=== PATIENT | female | born 1960 | race Caucasian/White ===

== ENCOUNTER 2017-01-06 15:44 | Inpatient (IN) ==
[2017-01-06] MEDS ORDERED: ZOFRAN ONE (16:05)
[2017-01-06] MEDS ORDERED: AMMONIA AROMATIC ONE (16:05)
[2017-01-06] MEDS ORDERED: NS 1,000 ML ONE (16:06)
[2017-01-06 16:15] LABS: MANUAL DIFF NEEDED? NO
[2017-01-06] MEDS ORDERED: ZOFRAN IV ONE ×2 (16:16→17:58)
[2017-01-06] MEDS ORDERED: NS 1,000 ML IV ONE ×2 (16:16→20:37)
[2017-01-06 16:17] LABS: BASO% 0.1 % (0.0-0.8); EOS# 0.11 X1000 (0.0-0.7); EOS% 1.4 % (0.0-10.0); HEMATOCRIT 43.8 % (37.0-47.0); HEMOGLOBIN 14.9 g/dL (12.0-16.0); IMM GRAN# 0.02 X1000 (0.0-0.04); IMM GRAN% 0.2 % (0.0-0.5); LYMPH# 2.55 X1000 (1.2-3.4); LYMPH% 31.8 % (20.5-51.1); MCH 28.9 PG (27-31); MCV 84.9 FL (81-99); MONO# 0.24 X1000 (0.11-0.59); MPV 10.7 FL (7.4-10.4); NEUT% 63.5 % (42.2-75.2); PLT 237 X1000 (130-400); RBC 5.16 XMIL (4.2-5.4)
[2017-01-06 16:38] LABS: AGAP 12; ALBUMIN 4.4 g/dL (3.5-5.0); ALKALINE PHOSPHATASE 84 U/L (32-104); BUN 14 mg/dL (8-22); CALCIUM 10.1 mg/dL (8.8-10.2); CHLORIDE 101 mmol/L (98-107); CK PROFILE 424 U/L (24-173); COSMO 278; GOT 30 U/L (10-30); GPT 21 U/L (10-36); POTASSIUM 3.4 mmol/L (3.5-5.1); SODIUM 139 mmol/L (136-145); TCO2 26 mmol/L (25-35); TOTAL BILIRUBIN < 0.15 mg/dL (0.20-1.00); TOTAL PROTEIN 8.2 g/dL (6.3-8.3)
[2017-01-06 16:41] LABS: PROTIME 11.3 Seconds (12.1-15.5); PTT PL 29.9 Seconds (22.6-43.9)
[2017-01-06 16:44] LABS: UR AMPHETAMINES QUAL NONE DETECTED (NONE DETECT); UR BARBITUATES QUAL NONE DETECTED (NONE DETECT); UR BENZODIAZEPIN QUAL NONE DETECTED (NONE DETECT)
[2017-01-06 16:45] LABS: UR CANNABINOIDS QUAL NONE DETECTED (NONE DETECT); UR COCAINE QUAL NONE DETECTED (NONE DETECT); UR MDMA QUAL NONE DETECTED (NONE DETECT); UR METHADONE QUAL NONE DETECTED (NONE DETECT); UR METHAMPHETAMINE QUAL PRESUMPTIVE POSITIVE (NONE DETECT); UR OPIATES QUAL NONE DETECTED (NONE DETECT); UR OXYCODONE QUAL NONE DETECTED (NONE DETECT); UR PCP QUAL PRESUMPTIVE POSITIVE (NONE DETECT); UR TCA QUAL NONE DETECTED (NONE DETECT)
[2017-01-06 16:52] LABS: BILIRUBIN URINE NEGATIVE (NEGATIVE); BLOOD URINE NEGATIVE (NEGATIVE); CLARITY CLEAR (CLEAR); COLOR YELLOW; GLUCOSE URINE NEGATIVE (NEGATIVE); LEUKOCYTES URINE TRACE (NEGATIVE); NITRITE URINE NEGATIVE (NEGATIVE); PROTEIN URINE NEGATIVE (NEGATIVE); SP GRAVITY URINE 1.005; UROBILINOGEN URINE NORMAL
[2017-01-06 17:00] LABS: BE -4.1 mmoll (-3.0-3.0); BLOOD TYPE ARTERIAL; DRAW SITE R RADIAL; O2(CT) 19.9 mL/dL (15.0-23.0); PCO2(98.6) 44 mmHg (35-45); PO2(98.6) 178 mmHg (60-100); SAMPLE BLOOD; SAO2 99.9 % (95.0-100.0); THB 14.6 g/dL (11.5-17.4); pH(98.6) 7.31 (7.35-7.45)
--- NOTE | 2017-01-06 17:05 | EKG Report ---
Test Performed on : 01/06/2017 4:37:55 PM Test Reason : AMS Blood Pressure : / mmHG Vent. Rate : 062 BPM Atrial Rate : 062 BPM P-R Int : 142 ms QRS Dur : 088 ms QT Int : 430 ms P-R-T Axes : 070 079 064 degrees QTc Int : 436 ms Normal sinus rhythm. with sinus arrhythmia. Possible Left atrial enlargement Borderline ECG No previous ECGs available Unconfirmed Result
[2017-01-06 17:06] LABS: MODALITY CANNULA
[2017-01-06 17:07] LABS: ALLEN TEST YES
[2017-01-06 17:24] LABS: URINE WBC <10 /HPF (<10)
[2017-01-06 17:25] LABS: URINE CAST NONE SEEN /LPF; URINE CRYSTAL NONE SEEN /HPF; URINE CULTURE PL NEEDED? YES; URINE EPITHELIAL CELLS <10 /HPF (<10); URINE SOURCE CATH
[2017-01-06 17:40] LABS: CK INDEX 2.6 (0.0-2.5); CK-MB 11.06 ng/mL (0.0-5.0)
[2017-01-06 17:47] LABS: INR 0.76 (0.86-1.15)
--- NOTE | 2017-01-06 17:54 | PROVIDER DOCUMENTATION ---
This chart was entered by Nia Guardado Scribe, acting as scribe for Amber Lantigua MD. HPI-Female /OB/Breast - General Chief Complaint: General Adult Stated Complaint: UTI SX Time Seen by Provider: 01/06/17 16:04 Source: reports: patient Allergies/Adverse Reactions: Patient Allergies Allergy/AdvReac Type Severity Reaction Status Date / Time No Known Allergies Allergy Verified 01/06/17 16:26 Home Medications: Home Medication List Medication Instructions Recorded Confirmed Last Taken Type Albuterol [Albuterol Neb] 2.5 mg IH 4XDAY 01/06/16 01/06/17 Unknown History Buprenorphine/Naloxone S.l. 1 tab PO BID 01/06/17 01/06/17 01/06/17 History [Suboxone 8 mg/2 mg] Levothyroxine [Synthroid] 150 mcg PO DAILY #30 tablet 01/08/17 Unknown Rx Polyethylene Glycol 3350 [Miralax] 17 gm PO DAILY #30 powd.pack 01/08/17 Unknown Rx - History of Present Illness-Female /OB Nature of Presenting Problem: Pt is a 56 y/o F presents to the ED with suprapubic pain. Pt states she self caths. Pt states nausea and vomit. Pt is diaphoretic and pallor on arrival. Does patient report she is ?: No Location of complaint: reports: suprapubic Radiation: reports: none Quality of Pain: reports: cramping Severity in ED: reports: moderate Onset/Duration: reports: this morning Timing: reports: still present Context/Activities at Onset: reports: light activity Urinary Symptoms: reports: retention Modifying Factors: improves with: nothing Associated Symptoms: reports: diaphoresis, nausea, vomiting. denies: anxiety, back/neck pain, chest pain, constipation, cough, diarrhea, dizziness, fatigue, fever/chills, joint pain, loss of appetite, malaise, muscle aches, rash, seizure , sensory/motor loss, swelling/mass in abdomen, syncope, weakness, trouble walking Similar Symptoms Previously?: Yes Recently seen or treated by another doctor?: No Review of Systems - Adult - REVIEW OF SYSTEMS - ADULT Constitutional: reports: no symptoms reported Eyes: reports: no symptoms reported Ears, Nose, Mouth & Throat: reports: no symptoms reported Cardiovascular: reports: no symptoms reported Respiratory: reports: no symptoms reported Gastrointestinal: reports: abdominal pain (suprapubic), nausea, vomiting. denies: diarrhea Genitourinary: reports: urinary retention. denies: dysuria, flank pain, hematuria Musculoskeletal: reports: no symptoms reported Integumentary: reports: no symptoms reported Neurological: reports: no symptoms reported Psychiatric: reports: no symptoms reported Endocrine: reports: no symptoms reported Hematologic/Lymphatic: reports: no symptoms reported Allergic/Immunologic: reports: no symptoms reported All Other Systems: Reviewed and Negative Past History - Adult - PAST MEDICAL HISTORY-ADULT Review of Records: reports: Nursing Assessment Review, Medications Reviewed, Social history reviewed & non-contributory. Major Childhood Illnesses: reports: denies history Cardiovascular: reports: HTN Respiratory: reports: COPD Gastrointestinal: reports: GERD, ulcer. denies: Crohn's, hemorrhoids, inflammatory bowel disease, IBS Obstetrical/Gynecological: reports: denies history Genitourinary: reports: other (bladder mesh) Musculoskeletal: reports: arthritis, chronic pain, fibromyalgia, neck/back injury (back) Neurological: reports: denies history Psychiatric: reports: denies history Endocrine/Immune: reports: thyroid disorder Other Conditions: reports: denies history - PRIOR SURGERIES/PROCEDURES Surgical/Procedure History: reports: appendectomy, hysterectomy, orthopedic ( extremity), breast, other - IMMUNIZATION STATUS Childhood Immunizations: See Nurse Assessment Flu Vaccine: See Nurse Assessment - FAMILY HISTORY Family History: reviewed, not pertinent - SOCIAL HISTORY Smoking: cigarettes, greater than 1 pack/day Provider spent 3-5 mins advising pt. on dangers of tobacco.: Discussed manners to quit use, and f/u contacts for add'l counseling. Substance Use: denies Living Situation: family Physical Exam-General - PHYSICAL EXAM-ADULT Initial Vital Signs Reviewed: Yes - CONSTITUTIONAL General Appearance: alert, moderate distress, thin, slow to respond. negative: appears well, lethargic - EYES Eyes: PERRL/EOMI, pale conjunctivae. negative: pink conjunctivae, sunken eyes - HEAD, EARS, NOSE, MOUTH & THROAT HENMT: normal ENT inspection. negative: angioedema, hearing deficit - NECK Neck: normal inspection. negative: lymphadenopathy, tender lateral - RESPIRATORY Respiratory: chest non-tender, lungs clear, normal breath sounds. negative: crackles, wheezing - CARDIOVASCULAR Cardiovascular: normal peripheral pulses, bradycardia. negative: regular rate, rhythm, systolic murmur - GASTROINTESTINAL (ABDOMEN) Abdominal Exam: normal bowel sounds, soft, tenderness (suprapubic). negative: distended, rebound - LYMPHATIC Lymphatic: no adenopathy. negative: enlargement, streaking - MUSCULOSKELETAL Back Exam: normal inspection. negative: ecchymosis, vertebral tenderness Extremity: normal inspection. negative: deformity, erythema, swelling - SKIN Integumentary: diaphoresis, pallor. negative: normal color, warm/dry, ecchymosis, erythema, jaundice, rash - NEUROLOGIC Neurologic: other (unable to assess per Pt's condition) - PSYCHIATRIC Psych/Mental Status: disheveled, other (unable to assess per Pt's condition) Progress - PLAN OF CARE/RESULTS Progress/Plan/Lab Results: Orders Category Date Time Status Admit - [facility] Routine AdmDCTranf 01/06/17 20:37 Ordered Activity - Strict Bedrest ORDERED Care 01/06/17 20:37 Inactive Call Admitting on Arrival AT ADMISSION Care 01/06/17 20:38 Completed Cardiac Monitoring DIRECTED Care 01/06/17 16:02 Completed Finger Stick Blood Sugar (ED) DIRECTED Care 01/06/17 16:02 Completed Reinoso Cath Insertion ORDERED Care 01/06/17 16:25 Completed Neurological Check Q4H Care 01/06/17 20:38 Active Oxygen Therapy- ED Nursing DIRECTED Care 01/06/17 16:02 Completed Saline Loc NOW Care 01/06/17 16:02 Completed Vital Signs Order Q2HR Care 01/06/17 20:37 Completed flat [FLAT/UPRIGHT ABD/1 VIEW CHEST] [RAD] Stat Exams 01/06/17 17:40 Completed ABG [RESP] Routine Lab 01/06/17 16:33 Completed ALCOHOL BLOOD Stat Lab 01/06/17 16:09 Completed BLOOD CULTURE [BLDCUL] Stat Lab 01/06/17 16:45 Results CBC WITH ELECTRONIC DIFF [HEME] Stat Lab 01/06/17 16:09 Completed CK PROFILE [SP CHEM] Stat Lab 01/06/17 16:09 Completed CK PROFILE [SP CHEM] Stat Lab 01/06/17 18:56 Completed COMPREHENSIVE METABOLIC PANEL [CHEM] Stat Lab 01/06/17 16:09 Completed LACTATE, PLASMA [CHEM] Stat Lab 01/06/17 16:09 Completed [address]IME WITH INR PL [COAG] Stat Lab 01/06/17 16:[address] [COAG] Stat Lab 01/06/17 16:09 Completed TROPONIN T Stat Lab 01/06/17 16:09 Completed TROPONIN T Stat Lab 01/06/17 18:56 Completed TSH Stat Lab 01/06/17 18:[address] W/POSS RFLX CULT [URINALYSIS] Stat Lab 01/06/17 16:15 Completed URINE CULTURE [RM] Routine Lab 01/06/17 17:31 Com[address]INE DRUG SCREEN PL Stat Lab 01/06/17 16:15 Completed 0.9% Sodium Chloride Inj [Ns] 1,000 ml Med 01/06/17 16:06 Discontinued .ROUTE As Directed 0.9% Sodium Chloride Inj [Ns] 1,000 ml Med 01/06/17 16:16 Discontinued IV 999 mls/hr 0.9% Sodium Chloride Inj [Ns] 1,000 ml Med 01/06/17 20:37 Discontinued IV KVO Ammonia, Aromatic [Ammonia Aromatic] Med 01/06/17 16:05 Discontinued 1 each .ROUTE .STK-MED ONE Levothyroxine [Synthroid] Med 01/06/17 21:06 Discontinued 100 microgm PO NOW ONE Levothyroxine [Synthroid] Med 01/06/17 21:07 Discontinued 100 microgm PO NOW ONE Ondansetron [Zofran] Med 01/06/17 16:05 Discontinued 4 mg .ROUTE .STK-MED ONE Ondansetron [Zofran] Med 01/06/17 16:16 Discontinued 4 mg IV NOW ONE Ondansetron [Zofran] Med 01/06/17 17:58 Discontinued 4 mg IV NOW ONE Oxygen Device Routine Oth 01/06/17 20:38 Completed Pulse Oximetry Stat Oth 01/06/17 16:02 Completed EKG [EKG] Stat Ther 01/06/17 16:02 Draft EKG [EKG] Stat Ther 01/06/17 18:39 Draft Transfer/Admit Order [TRANSFER] Routine Transfer 01/06/17 20:37 Completed Result Diagrams: 01/08/17 05:57 01/08/17 05:57 - EKG 1 Time of EKG reading by physician:: 16:37 EKG Read and Signed by:: Amber Lantigua EKG Interpretation (*Must complete 3 of following elements*): Abnormal Rate: 62 Rhythm: normal sinus rhythm with sinus arrhythmia Comments: possible left atrial enlargement - CHANGE OF SHIFT REPORT (ED Provider) Report Given and Care Transferred to:: Dr. Powell Time of Transfer: 17:50 Items Pending: Labs, XRAY Results Departure - Departure Date of Disposition Decision: 01/06/17 Time of Disposition Decision: 22:45 DIAGNOSIS: Altered mental status, Overdose, Hypothermia Disposition: ADMITTED INPATIENT 09 Certified Medical Emergency: Emergent Condition: Serious - Critical Care Note This patient required my direct & personal management of CC.: Yes Total Time (mins): 35 Critical Care Statement: This patient required my direct personal management to treat or rule out processes, the absence of which, could potentiallly result in sudden, clinically significant life or limb threatening deterioration. Attestation - Physician/ GAUDENCIO Attestation Patient care was provided by Advanced Practice Provider:: No The physician spent face to face time with patient:: Yes Advanced Practice Provider documentation review:: Supervising physician onsite and consulted in the evaluation and care of this patient. The physician did have a face to face encounter with the patient. This chart was documented by the indicated scribe, (Nia Guardado, Aaron) and accurately reflects the services I performed and decisions made by me, Amber Lantigua MD, as attested by the provider's signature.
--- NOTE | 2017-01-06 18:24 | Diag Imaging Result Doc PS360 ---
EXAM: FLAT/UPRIGHT ABD/1 VIEW CHEST HISTORY: Abd opain TECHNIQUE: Flat and upright abdomen with PA chest COMMENT: There is a large amount of stool throughout the colon. There is no evidence organomegaly or mass in the small bowel and stomach are not distended. The appearance of the chest has not changed significantly since 01/05/2017. IMPRESSION: Severe constipation. Electronically signed by Segundo Sarah 01/06/2017 6:22 PM
--- NOTE | 2017-01-06 19:00 | EKG Report ---
Test Performed on : 01/06/2017 6:44:03 PM Test Reason : cp Blood Pressure : / mmHG Vent. Rate : 073 BPM Atrial Rate : 073 BPM P-R Int : 132 ms QRS Dur : 086 ms QT Int : 404 ms P-R-T Axes : 070 076 062 degrees QTc Int : 445 ms Normal sinus rhythm. Possible Left atrial enlargement Borderline ECG When compared with ECG of 06-JAN-2017 16:37, (Unconfirmed) No significant change was found Unconfirmed Result
--- NOTE | 2017-01-06 19:59 | ED EKG INTERP ---
This chart was entered by Jihan Esparza Scribe, acting as scribe for Kai Powell MD. EKG Interpretation - EKG Time of EKG reading by physician:: 18:44 EKG Read and Signed by:: Kai Powell EKG Interpretation (*Must complete 3 of following elements*): Abnormal Rate: 73 Rhythm: NSR Comments: possible LAE Attestation - Physician/ GAUDENCIO Attestation The physician spent face to face time with patient:: Yes Advanced Practice Provider documentation review:: Supervising physician onsite and consulted in the evaluation and care of this patient. The physician did have a face to face encounter with the patient. This chart was documented by the indicated scribe, (Jihan Esparza Scribe) and accurately reflects the services I performed and decisions made by me, Kai Powell MD, as attested by the provider's signature.
[2017-01-06 20:04] LABS: CK INDEX 2.9 (0.0-2.5); CK-MB 8.63 ng/mL (0.0-5.0)
[2017-01-06] MEDS ORDERED: SYNTHROID PO ONE ×3 (21:06→23:45)
--- NOTE | 2017-01-07 05:52 | HISTORY AND PHYSICAL ---
ADDENDUM: The patient was seen in the ER and examined. She was noted to have a temp of 94 degrees. Blood pressures were stable at 130s. She was having some altered mental status, but currently is actually improving. She currently knows who she is, where she is. States that she self caths and that she has done this before when she has had a urinary infection. She does admit to using meth a couple of days ago. She notes that she has a thyroid problem, but has not been on thyroid medication for several months. PHYSICAL EXAMINATION: GENERAL: Patient is awake, alert. She is much more oriented now. VITAL SIGNS: Her temperature is improving with a bear-hugger. She is currently at 130/60 blood pressure. LABORATORIES: Pretty much normal. PLAN: We will admit patient to ICU and will follow. Uncertain etiology. Certainly could have urinary infection, although her current UA looks clear. We will admit her on antibiotics, bear- hugger, IV fluids and will follow. cc: Jon Scott MD
[2017-01-07] MEDS ORDERED: CITRATE OF MAGNESIA PO ONE (10:45)
[2017-01-07] MEDS: SYNTHROID PO SCH (11:03)
[2017-01-07] MEDS: SUBOXONE 8 MG/2 MG SL SCH ×2 (11:05→21:31)
--- NOTE | 2017-01-07 11:25 | PROGRESS NOTE ---
DATE: 01/07/2017 SUBJECTIVE: Patient sitting up in bed, answering questions appropriately this morning. She is alert and oriented to person, place, time, and purpose. States she still has some nausea, no vomiting this morning. But overall, states she is feeling better. OBJECTIVE: Vital signs: Showed a temperature of 98.4 degrees, pulse 63, respirations 16, blood pressure 96/57, saturating 100% on 2 L via nasal cannula. General: This is a 56-year-old female, who is sitting up in the bed, still appears pale in color, but is no longer diaphoretic and answers questions appropriately this a.m. HEENT: Normocephalic and atraumatic. Pupils are equal, round, reactive to light. Extraocular movements are intact. Oropharynx and nares are clear. Neck: Supple. Lungs: Clear to auscultation bilaterally with equal lung expansion and chest wall movement. Heart: With regular rate and rhythm. No murmurs, rubs, or gallops. Abdomen: Soft, nontender, nondistended. Bowel sounds are present x4 quadrants. Extremities: There is no clubbing, cyanosis, or edema. Neurological: The cranial nerves 2-12 appear grossly intact. LABORATORY DATA: No new labs this a.m. ASSESSMENT AND PLAN: 1. Altered mental status, improved. 2. Hypothermia, resolved. 3. Severe constipation. We will give her a bottle of magnesium citrate this morning and follow. 4. Mild rhabdomyolysis, continues to improve. Will recheck cardiac enzymes this a.m. 5. Disposition. If she has a positive bowel movement and can tolerate advancement of her diet, hopefully home in the next 1-2 days. Dictated by ROBBY Oneill for Jose Palomares MD cc: ROBBY Oneill MD
--- NOTE | 2017-01-07 11:43 | HISTORY AND PHYSICAL ---
PRIMARY CARE PHYSICIAN: None. CHIEF COMPLAINT: Suprapubic pain with nausea, vomiting that had progressively worsened over the last several days. HISTORY OF PRESENTING ILLNESS: This is a 56-year-old female who presents to [facility] ER with complaints of suprapubic abdominal pain, nausea and vomiting. States that she self cath's due to issues from having a bladder mesh placed. When she arrived, she was noted to be diaphoretic and paler in color. Her temperature was 94.2 degrees on arrival with a pulse of 54, respirations 28, blood pressure 151/94, but satting 100% on room air. Workup was essentially benign, except she was noted to have a creatine kinase of 424 with a CK-MB of 11.06. Negative troponin at less than 0.010. Repeat 3 hours later showed a creatine kinase had come down to 302 with a CK-MB of 8.63 with a negative troponin of less than 0.010. Urinalysis was essentially negative, except for 1+ bacteria. Urine drug screen was positive for methamphetamines and phencyclidine. We did an abdomen x-ray that showed an impression of severe constipation. When she arrived, she had altered mental status and increased confusion. So, she was admitted for further evaluation and treatment. PAST MEDICAL HISTORY: Hypertension, COPD, GERD, ulcers, fibromyalgia and hypothyroidism. PAST SURGICAL HISTORY: Bladder mesh placement, appendectomy, hysterectomy and breast implants. FAMILY HISTORY: Noncontributory. SOCIAL HISTORY: She currently lives with family. Smokes 1 pack of cigarettes a day and has done so for the past 30 years. Denies any alcohol or illicit drug use. ALLERGIES: She has no known drug allergies. HOME MEDICATIONS: She takes albuterol nebulizers 4 times a day, Suboxone 8 mg/2 mg one sublingually b.i.d., and Synthroid 150 mcg p.o. daily. LABORATORY DATA: Showed a white blood cell count of 8.03, hemoglobin 14.9, hematocrit 43.8, platelets 237. PT and INR of 11.3 and 0.76. ABG showed a pH of 7.31, pCO2 of 44, PO2 178, bicarbonate 21.7. Sodium 139, potassium 3.4, chloride 101, CO2 26, BUN of 14, creatinine 0.8, glucose 100. Creatine kinase of 424, CK-MB of 11.06 with a troponin of less than 0.010. Repeat 3 hours later showed a creatine kinase of 302, CK-MB was 8.63 with a troponin of less than 0.010. Urinalysis was negative except for 1+ bacteria. Urine drug screen was presumptive positive for phencyclidine and methamphetamines. RADIOLOGIC DATA: Abdomen x-ray showed severe constipation. EKG on arrival showed normal sinus rhythm at 62. REVIEW OF SYSTEMS: She was positive for suprapubic pain, nausea, vomiting, diaphoresis. Denied any fever, chills, blurred vision, dizziness, chest pain, coughing, shortness of breath. States that she had a couple episodes of diarrhea yesterday. Positive for constipation. Denies any burning or hurting with urination. PHYSICAL EXAMINATION: VITAL SIGNS: On arrival showed a temperature of 94.2 degrees, pulse 54, respirations 28, blood pressure 151/94 satting 100% on room air. GENERAL: This is a 56-year-old female, who is lying in the bed, unable to answer all questions appropriately, is diaphoretic and paler in color. HEENT: Normocephalic and atraumatic. Pupils are equal, round, reactive to light. Extraocular movements are intact. Oropharynx and nares are clear. NECK: Supple. LUNGS: Clear to auscultation bilaterally with equal lung expansion and chest wall movement. HEART: With regular rate and rhythm. No murmurs, rubs, or gallops. ABDOMEN: Soft, nontender, nondistended. Bowel sounds were present x4 quadrants. EXTREMITIES: No clubbing, cyanosis or edema. NEUROLOGICAL: The cranial nerves 2-12 appear grossly intact. ASSESSMENT: 1. Altered mental status. 2. Hypothermia. 3. Some mild rhabdomyolysis. 4. Severe constipation. PLAN: She is being admitted to the medical unit at [facility], placed on a clear liquid diet. Will obtain a urine culture. Blood cultures x2 are pending. Neuro checks q. 4 hours for 24 hours. She has an indwelling Reinoso catheter. Will continue home medications as previously identified. She did receive a liter bolus of normal saline in the emergency room. We will address her severe constipation. It appears her rhabdomyolysis is improving after receiving the fluids, and we will recheck labs in the a.m. We will also place her on a Susan hugger to improve her hypothermia. Dictated by ROBBY Oneill for Jon Scott MD cc: ROBBY Oneill MD
[2017-01-07] MEDS: ALBUTEROL NEB INH SCH ×3 (15:38→20:10)
[2017-01-07] MEDS ORDERED: RELISTOR SUBQ ONE (19:44)
[2017-01-07] MEDS: LACTULOSE PO SCH (21:32)
[2017-01-07] MEDS: MIRALAX PO SCH (21:37)
[2017-01-08] MEDS: ALBUTEROL NEB INH SCH ×3 (03:02→14:42)
[2017-01-08] MEDS: SYNTHROID PO SCH (06:37)
[2017-01-08 06:42] LABS: AGAP 8; BUN 6 mg/dL (8-22); CALCIUM 8.7 mg/dL (8.8-10.2); CHLORIDE 106 mmol/L (98-107); COSMO 279; POTASSIUM 3.6 mmol/L (3.5-5.1); SODIUM 141 mmol/L (136-145); TCO2 27 mmol/L (25-35)
[2017-01-08 06:48] LABS: HEMATOCRIT 36.5 % (37.0-47.0); HEMOGLOBIN 11.6 g/dL (12.0-16.0); MCHC 31.8 g/dL (33-37); MCV 88.2 FL (81-99); MPV 11.2 FL (7.4-10.4); RBC 4.14 XMIL (4.2-5.4)
[2017-01-08] MEDS: MIRALAX PO SCH (09:56)
[2017-01-08] MEDS: LACTULOSE PO SCH (09:56)
[2017-01-08] MEDS: SUBOXONE 8 MG/2 MG SL SCH ×2 (09:57→19:52)
[2017-01-08 15:42] VITALS: BP 122/79
--- NOTE | 2017-01-10 07:29 | DISCHARGE SUMMARY ---
ADMISSION DATE: 01/06/2017 DISCHARGE DATE: 01/08/2017 PRIMARY CARE PHYSICIAN: None. ADMISSION DIAGNOSES: 1. Altered mental status. 2. Hypothermia. 3. Mild rhabdomyolysis. 4. Severe constipation. DISCHARGE DIAGNOSES: 1. Altered mental status, resolved. 2. Hypothermia, resolved. 3. Mild rhabdomyolysis, resolved. 4. Severe constipation, improved. SUMMARY OF FINDINGS: This is a 56-year-old female, who presented with complaints of suprapubic abdominal pain, nausea, and vomiting. She does self-cath due to some issues from having a bladder mesh placed. When she arrived to the emergency room, she was noted to be diaphoretic and paler in color. Her temp was 94.2 degrees. She was placed on the Susan Hugger, and her temp came up to 97.6, after about 3 hours on the Susan Hugger. Her abdomen x-ray showed severe constipation. We gave her a bottle of Mag Citrate. She was initially placed on a clear liquid diet, but she had no further nausea, vomiting, and she was advanced to a regular diet, tolerated well with no further complaints of nausea. Her creatine kinase returned to normal at 131. So, it was felt that she could safely be discharged home. DISCHARGE MEDICATIONS: 1. She will continue her Synthroid 150 mcg p.o. daily #30 with no refills. 2. MiraLAX 17 g p.o. daily. 3. Her nebulizers 4 times daily. 4. Suboxone 8 mg/2 mg p.o. b.i.d. FOLLOWUP: We gave her the information for the [facility], and we gave her the number to one of our general surgeons to discuss with him about the possibility of removing the mesh in her bladder, and patient verbalized understanding of all discharge instructions. TIME SPENT: 35 minutes. Dictated by ROBBY Oneill for Jose Palomares MD cc: ROBBY Oneill MD
== END 2017-01-08 20:02 | disposition home or self-care (01) ==
LOC: P.MEDSURG 15:44 → P.ED 15:44 → SUATTDRO 22:09 → OBSVTOIN 22:09
PROVIDERS: ATTEND Internal Medicine